=== PATIENT | male | born 1950 | race Caucasian/White ===

== ENCOUNTER → 2017-01-01 | Outpatient (CLI) | payer OTHER ==
[2017-01-01 09:25] LABS: BLOOD UREA NITROGEN 24 mg/dL (7-22); BUN/CREATININE RATIO 26.66 (6-20); CALCIUM 9.3 mg/dL (8.7-10.7); CHOL/HDL RATIO 3.76 RATIO (0-4.0); EST GLOMERULAR FILTRATION > 60 (>60 ml/min/1.73m(2)); HDL CHOLESTEROL 56 mg/dL (40-150); SERUM ALBUMIN 4.5 g/dL (3.5-4.8); SERUM CHOLESTEROL 211 mg/dL (120-200)
--- NOTE | 2017-01-01 22:35 | DI ---
XR CXR 2VW PA/LAT,01/01/2017 9:55 AM: Clinical History: History of asbestos exposure. Previous Exam: None at this facility. Findings: PA and lateral views of the chest are obtained, and demonstrate clear lungs. The cardiomediastinum an d bony thorax are unremarkable. Impression: Normal chest.
== END ==
LOC: MOB LAB 08:53
PROVIDERS: ATTEND Nurse Practitioner Family
DX: N40.1 Benign prostatic hyperplasia with lower urinary tract symptoms (principal); R35.1 Nocturia; E78.00 Pure hypercholesterolemia, unspecified; Z77.090 Contact with and (suspected) exposure to asbestos; Z12.5 Encounter for screening for malignant neoplasm of prostate
CPT/HCPCS: 36415; 71020; 80053; 80061; G0103

== ENCOUNTER → 2017-02-07 | Outpatient (CLI) | payer OTHER | LOC: MMPC 09:00 | PROVIDERS: ATTEND Nurse Practitioner Family | DX: K40.21 Bilateral inguinal hernia, without obstruction or gangrene, recurrent (principal); N40.1 Benign prostatic hyperplasia with lower urinary tract symptoms | CPT/HCPCS: 99213; G0463 ==

== ENCOUNTER → 2017-02-10 | Outpatient (CLI) | payer OTHER | LOC: MMPC 11:11 | PROVIDERS: ATTEND Surgery | DX: K40.21 Bilateral inguinal hernia, without obstruction or gangrene, recurrent (principal); Z12.11 Encounter for screening for malignant neoplasm of colon; Z80.0 Family history of malignant neoplasm of digestive organs | CPT/HCPCS: 99213; G0463 ==

== ENCOUNTER → 2017-02-13 | Outpatient (CLI) | payer OTHER | LOC: MMPC 11:11 | PROVIDERS: ATTEND Surgery | DX: Z80.0 Family history of malignant neoplasm of digestive organs (principal) | CPT/HCPCS: 99213; G0463 ==

== ENCOUNTER → 2017-02-28 | Day surgery (SDC) | payer OTHER ==
[~2017-02-28] MED LIST: LIDOCAINE W/ SODIUM BICARB 0.5 ML SYR ONE; Lactated Ringers 1,000 ML PRIMARY IV ONE; MIDAZOLAM 5 MG/1 ML ONE; fentaNYL Inj 100 MCG/2 ML VIAL ONE
--- NOTE | 2017-02-28 09:17 | GEN.OPNOTE ---
Colonoscopy Procedure Note Surgery Date: 02/28/17 Preoperative Diagnosis: Colon cancer screening. Family history of colon cancer. Postoperative Diagnosis: Same. Procedure: Complete colonoscopy. Surgeon: Arash Miguel MD Anesthesia Provider: Tom Castorena CRNA Anesthesia Type: MAC Indications: See preoperative diagnosis. Last colonoscopy was in 2001. Findings: Prep : [Excellent] Cecum : [Normal] Ascending : [Normal] Transverse : [Normal] Sigmoid : [Normal] Rectum : [Normal] Digital Rectal Exam : [Prostate of normal size and consistency. No nodules. Mild hemorrhoidal tissue.] A lubricated flexible colonoscope was inserted and passed to the blind end of the cecum. The ileocecal valve and appendiceal orifice were clearly seen. Air was aspirated as the scope was withdrawn. The entire colonoscopy was normal without polyp, tumor, neoplastic mass, infectious or inflammatory process. The scope was withdrawn completing the procedure. Patient tolerated the procedure well without complication. He was taken to outpatient surgery in stable condition. Follow-up will be with my office on an as-needed basis. It is recommended he undergo follow-up colonoscopy in 5 years time for a family history of colon cancer.
[2017-02-28 10:02] VITALS: TEMP 97.3
[2017-02-28 10:05] VITALS: RESP 16
== END | disposition home or self-care (01) ==
LOC: SDSC 08:00
PROVIDERS: ATTEND Surgery
DX: Z80.0 Family history of malignant neoplasm of digestive organs (principal); Z12.11 Encounter for screening for malignant neoplasm of colon
CPT/HCPCS: 00810; G0105; G0121; J2704; J3010; J2250; J7120

== ENCOUNTER → 2017-03-08 | Outpatient (CLI) | payer OTHER | LOC: MMPC 09:00 | PROVIDERS: ATTEND Physician Assistant Medical | DX: S61.412A Laceration without foreign body of left hand, initial encounter (principal); W26.0XXA Contact with knife, initial encounter; Z23 Encounter for immunization | CPT/HCPCS: 12042 ×2; 90714; G0463 ==

== ENCOUNTER → 2017-04-10 | Outpatient (CLI) | payer OTHER | LOC: MMPC 09:00 | PROVIDERS: ATTEND Nurse Practitioner Family | DX: F41.1 Generalized anxiety disorder (principal) | CPT/HCPCS: 99213; G0463 ==

== ENCOUNTER → 2017-05-06 | Outpatient (CLI) | payer OTHER | LOC: MMPC 09:00 | PROVIDERS: ATTEND Nurse Practitioner Family | DX: F41.1 Generalized anxiety disorder (principal); N40.1 Benign prostatic hyperplasia with lower urinary tract symptoms | CPT/HCPCS: 99213; G0463 ==

== ENCOUNTER → 2017-05-08 | Outpatient (CLI) | payer OTHER | LOC: MMPC 11:11 | PROVIDERS: ATTEND Surgery | DX: K40.91 Unilateral inguinal hernia, without obstruction or gangrene, recurrent (principal) | CPT/HCPCS: 99213; G0463 ==

== ENCOUNTER 2017-05-09 06:51 | Day surgery (SDC) | payer OTHER ==
[~2017-05-09 06:51] MED LIST changes: +ATROPINE SULFATE 0.4 MG/1 ML VIAL IVP PRN; +Acetaminophen 1000mg Inj 1,000 MG in Premix 1 BAG IV ONE; +BUPIVACAINE 0.5% W/ EPI - 10 ML VIAL ONE; +HYDROmorphone 2 MG/1 ML IVP PRN; -MIDAZOLAM 5 MG/1 ML ONE; +NORMAL SALINE 10 ML SYRINGE FLUSH IVP PRN; +ONDANSETRON 4 MG/2 ML VIAL IVP PRN; +Ondansetron ODT Tab 8 MG TAB PO PRN; +ceFAZolin Inj 2gm (Premix) 50 ML IV ONE; +fentaNYL Inj 100 MCG/2 ML VIAL IVP PRN; -fentaNYL Inj 100 MCG/2 ML VIAL ONE
[2017-05-09] MEDS ORDERED: Lactated Ringers 1,000 ML PRIMARY IV SCH ×2 (07:00→09:45)
[2017-05-09] MEDS ORDERED: fentaNYL Inj 100 MCG/2 ML VIAL ONE (07:01)
[2017-05-09] MEDS ORDERED: MIDAZOLAM 5 MG/1 ML ONE (07:01)
[2017-05-09] MEDS ORDERED: LIDOCAINE MPF 2% - 5 ML (20 MG/1 ML) ONE (07:08)
[2017-05-09] MEDS ORDERED: Acetaminophen 1000mg Inj 100 ML IV ONE (07:29)
[2017-05-09 08:03] VITALS: RESP 20
[2017-05-09] MEDS ORDERED: ePHEDrine Inj 50 MG/ML AMP ONE (08:07)
[2017-05-09] MEDS ORDERED: GLYCOPYRROLATE 0.2 MG/1 ML VIAL ONE (08:08)
[2017-05-09] MEDS ORDERED: KETOROLAC 30 MG/1 ML VIAL ONE (08:53)
[2017-05-09] MEDS ORDERED: Lactated Ringers 1,000 ML PRIMARY IV ONE (08:53)
[2017-05-09] MEDS ORDERED: DEXAMETHASONE PF 10 MG/1 ML VIAL ONE (08:53)
--- NOTE | 2017-05-09 09:43 | GEN.OPNOTE ---
Operative Note Surgery Date: 05/09/17 Preoperative Diagnosis: Recurrent left inguinal hernia. Postoperative Diagnosis: Recurrent left inguinal hernia. Procedure: Reduction and repair of recurrent left inguinal hernia with Marlex mesh placement. Surgeon: Arash Miguel MD Anesthesia Provider: Elisabeth Arboleda CRNA Anesthesia Type: General Estimated Blood Loss (mL): 10 Fluids: 1500 mL of crystalloid. 1 g of IV Tylenol prior to the procedure. 2 g of IV Ancef prior to the procedure. 15 mg of IV Toradol at the end of the procedure. Pathology: No specimens. Indications: Symptomatic recurrent left inguinal hernia. Findings: Small direct recurrence and a large indirect recurrence. Complications: None. Operative Summary: Patient was taken to the operating room and placed on the operating table in the supine position. Following induction of adequate general anesthetic the left groin was prepped and draped in a sterile fashion. A surgical timeout was done. An incision was made over the groin and carried down through the subcutaneous tissue and James's fascia to the external oblique. The external oblique was split along the course of its fibers into the external ring. The external oblique was retracted. There was a moderate amount of scar tissue. The cord was mobilized at the pubic tubercle and encircled with a nonlatex drain. Dissection was carried back to the internal ring. The ilioinguinal nerve was caught up in scar tissue and excised. The iliohypogastric nerve was never seen. There was a small direct defect next to the pubic tubercle. It was closed with a 2-0 Vicryl in a [id number] fashion. The indirect sac was dissected free from the cord structures. It was opened. A finger was inserted. All contents were reduced. The floor was checked. A high ligation was performed. The excess sac was amputated. There was good retraction of the peritoneum through the internal ring. A piece of Marlex mesh was cut to fit the floor. It was secured superiorly and medially from the pubic tubercle with 2-0 Prolene suture. A running continuous suture was used to anchor the mesh around the pubic tubercle and along the shelving portion of Poupart's ligament to well past the internal ring. The mesh was split. The tails were wrapped around the cord at the internal ring. The upper tail was secured to the shelving portion of Poupart ligament with 2-0 Prolene. Laterally the tails were tucked under the external oblique. The upper edge of the mesh was secured to the internal oblique fascia with 2-0 Vicryl sutures. Having completed the repair the cord structures were returned to a relative anatomic position. The wound was irrigated. Hemostasis was assured. Final irrigation was 1/2% Marcaine with epinephrine which was allowed to sit in the wound for several minutes and then removed. The external oblique was closed with 2-0 Vicryl as was James's fascia. The skin was closed with running subcuticular 4-0 Prolene followed by Mastisol, Steri-Strips, and an appropriate dressing. The patient tolerated the entire procedure well without complication. He was taken to the recovery room in stable condition. All counts were correct.
[2017-05-09] MEDS ORDERED: oxyCODONE-ACETAMINOPHEN 5-325 TAB PO PRN (09:44)
[2017-05-09] MEDS ORDERED: ONDANSETRON 4 MG/2 ML VIAL IVP PRN (09:44)
[2017-05-09] MEDS ORDERED: MORPHINE SULFATE 2 MG/1 ML IVP PRN (09:44)
[2017-05-09] MEDS ORDERED: NORMAL SALINE 10 ML SYRINGE FLUSH IVP PRN (09:44)
[2017-05-09 12:12] VITALS: TEMP 96.8
== END 2017-05-09 11:09 | disposition home or self-care (01) ==
LOC: SDSC 06:51
PROVIDERS: ATTEND Surgery
DX: K40.91 Unilateral inguinal hernia, without obstruction or gangrene, recurrent (principal)
CPT/HCPCS: 49520; J0131; J0690; J1100; J1885; J2001; J2250; J2704; J3010; J7120

== ENCOUNTER → 2017-05-27 | Outpatient (CLI) | payer OTHER | LOC: MMPC 11:11 | PROVIDERS: ATTEND Surgery | DX: K40.90 Unilateral inguinal hernia, without obstruction or gangrene, not specified as recurrent (principal) ==

== ENCOUNTER → 2017-05-29 | Outpatient (CLI) | payer OTHER | LOC: MMPC 09:00 | PROVIDERS: ATTEND Nurse Practitioner Family | DX: F41.1 Generalized anxiety disorder (principal); G25.81 Restless legs syndrome | CPT/HCPCS: 99213; G0463 ==